=== PATIENT | female | born 1980 | race American Indian/Alaskan Native ===

== ENCOUNTER 2016-06-19 10:45 | Emergency (ER) | payer SELFPAY ==
[2016-06-19 11:40] VITALS: BP 116/77
[2016-06-19] MEDS ORDERED: ZOFRAN IM ONE (12:46)
[2016-06-19] MEDS ORDERED: NORCO 5/325 PO ONE (14:48)
--- NOTE | 2016-06-19 15:35 | Emergency Department Report ---
Entered by ISABELLA SANCHES, acting as scribe for FAUSTINO DUENAS PA. ED N/V/D HPI - General Chief complaint: Nausea/Vomiting/Diarrhea Stated complaint: VOMITING/HEADACHE/DIARRHEA Source: patient Mode of arrival: Ambulatory Limitations: No Limitations - History of Present Illness Initial comments: 36 year old female presents to the ED for evaluation of N/V/D that began this morning at 04:20. Patient reports vomiting x 6 since onset and diarrhea x 1 at 08:30 this morning. She reports associated sharp, "piercing" RLQ pain, chronic back pain that is worse today, and intermittent headache for 2-3 days. She reports her son and daughter have N/V symptoms. She rates her overall discomfort as a 9/10 and reports no alleviating factors. Patient has not taken any OTC or Rx pain relievers; reports she ran out of pain Rx and was last seen by Orthopedic in January 2016. Denies PO intake since symptom onset. Denies dysuria, fever, chills. MD complaint: nausea, vomiting (x 6 since 04:20 this morning), diarrhea (x 1 at 08:30 this morning) -: During the night (at 04:20 this morning) Associated Abdominal Pain: Yes Location: RLQ Radiation: none Pain Scale: 9 Quality: sharp ("piercing") Consistency: intermittent Improves with: none Worsens with: none Context: sick contacts (son and daughter have similar symptoms) Associated Symptoms: headaches (intermittent for 2-3 days), malaise, nausea/ vomiting, other (chronic back pain, worse today). denies: fever/chills, dysuria - Related Data Home Medications Medication Instructions Recorded Confirmed Last Taken ALBUTEROL Inhaler [Proair] 2 puff IH QID PRN 01/01/16 01/01/16 Unknown Previous Rx's Medication Instructions Recorded Last Taken Type Metaxalone [Skelaxin] 800 mg PO TID PRN #15 tablet 01/01/16 Unknown Rx Ondansetron [Zofran Odt] 4 mg PO TID PRN #20 tab.rapdis 06/19/16 Unknown Rx traMADol [Ultram 50 MG tab] 50 mg PO Q6HR PRN #20 tablet 06/19/16 Unknown Rx Allergies Allergy/AdvReac Type Severity Reaction Status Date / Time No Known Allergies Allergy Verified 06/19/16 11:34 ED Review of Systems Comment: All other systems reviewed and negative Constitutional: denies: chills, fever Gastrointestinal: abdominal pain (RLQ), nausea, vomiting (x 6), diarrhea (x 1). denies: hematemesis Genitourinary: denies: dysuria Musculoskeletal: back pain (chronic, worse today. No recent falls or injuries), other Neurological: headache ED Past Medical Hx - Past Medical History Hx Asthma: Yes Additional medical history: back pain - Surgical History Additional Surgical History: back surgery -SPINAL FUSION. TUBAL LIGATION. HERNIA REPAIR - Social History Smoking Status: Former Smoker Substance Use Type: Alcohol - Medications Home Medications: Home Medications Medication Instructions Recorded Confirmed Last Taken Type ALBUTEROL Inhaler [Proair] 2 puff IH QID PRN 01/01/16 01/01/16 Unknown History Metaxalone [Skelaxin] 800 mg PO TID PRN #15 tablet 01/01/16 Unknown Rx Ondansetron [Zofran Odt] 4 mg PO TID PRN #20 tab.rapdis 06/19/16 Unknown Rx traMADol [Ultram 50 MG tab] 50 mg PO Q6HR PRN #20 tablet 06/19/16 Unknown Rx ED Physical Exam - General Limitations: No Limitations General appearance: alert, other (actively vomiting during exam) - Head Head exam: Present: atraumatic, normocephalic - Eye Eye exam: Present: PERRL, EOMI - ENT ENT exam: Present: mucous membranes dry - Expanded ENT Exam Expanded Throat exam: Negative: tonsillar erythema, tonsillomegaly, tonsillar exudate - Neck Neck exam: Present: normal inspection. Absent: lymphadenopathy, thyromegaly - Respiratory Respiratory exam: Present: normal lung sounds bilaterally. Absent: respiratory distress, wheezes, rales, rhonchi - Cardiovascular Cardiovascular Exam: Present: regular rate, normal rhythm, normal heart sounds - GI/Abdominal GI/Abdominal exam: Present: soft, normal bowel sounds. Absent: distended, tenderness, guarding, rebound - Back Exam Back exam: Present: other (mildline paraspinal thoracic spine incision). Absent : CVA tenderness (R), CVA tenderness (L) - Neurological Exam Neurological exam: Present: alert, altered, oriented X3 - Psychiatric Psychiatric exam: Present: normal affect, normal mood - Skin Skin exam: Present: warm, dry, intact. Absent: rash ED Course Vital Signs 06/19/16 11:36 Temperature 98.3 F Pulse Rate 72 Respiratory 17 Rate Blood Pressure 116/77 O2 Sat by Pulse 100 Oximetry - Reevaluation(s) Reevaluation #1: 06/19/16 14:48 Patient tolerated water without vomiting and nausea has improved. Back pain and headache have continued. She states she has a ride home from the ED and will not be driving Reevaluation #2: 06/19/16 15:25 He reports that the [facility] has help with her back and headache. She reports she is ready to go home. ED Medical Decision Making - Medical Decision Making Patient's been evaluated by this provider in fast track. Ordered Zofran IM as well as [facility] for back pain. Patient reports that she feels much better ED Disposition Clinical Impression: Chronic back pain greater than 3 months duration Nausea and vomiting Qualifiers: Vomiting type: bilious vomiting Qualified Code(s): R11.14 - Bilious vomiting Disposition: DISCHARGED TO HOME OR SELFCARE Is pt being admited?: No Does the pt Need Aspirin: No Condition: Stable Instructions: Acute Nausea and Vomiting (ED), Chronic Back Pain (ED) Additional Instructions: Please use the medicine for nausea as prescribed advance her diet as tolerated. Please follow-up with her back specialist for chronic back pain. We will give been you a few Ultram for pain control. Prescriptions: Ondansetron [Zofran Odt] 4 mg PO TID PRN #20 tab.rapdis PRN Reason: Nausea traMADol [Ultram 50 MG tab] 50 mg PO Q6HR PRN #20 tablet PRN Reason: Pain Referrals: PRIMARY CARE,MD [Primary Care Provider] - 3-5 Days Forms: Work/School Release Form(ED) This documentation as recorded by the armandoibeVERÓNICA REBEKAH,accurately reflects the service I personally performed and the decisions made by me,FAUSTINO DUENAS PA.
== END 2016-06-19 15:35 | disposition home or self-care (01) ==
LOC: ED 10:45
DX: R11.14 Bilious vomiting (principal); G89.29 Other chronic pain; M54.9 Dorsalgia, unspecified; J45.909 Unspecified asthma, uncomplicated; Z98.51 Tubal ligation status; Z87.891 Personal history of nicotine dependence
CPT/HCPCS: 96372; 99282; J2405